=== PATIENT | male | born 1990 | race Two or more races ===

== ENCOUNTER 2016-11-14 00:38 | Emergency (ER) | payer SELFPAY ==
--- NOTE | 2016-11-14 00:46 | EDPHY ---
H & P Source: Patient, Police - Medical/Surgical History Other PMH: HEP C - REPEAT TEST WAS NEGATIVE PER PT - Social History Smoking Status: Never smoked HPI/ROS: HPI CHIEF COMPLAINT: M1 hold, suicidal ideation, access to gun HISTORY OF PRESENT ILLNESS: This patient 26-year-old male, history of depression, with his best friend recently dying. His depression has been getting worse. He is brought here by [place] on M1 hold. Apparently he was texting multiple friends that he was going to kill himself. He does have access to his own gun. He also was telling his brother he was suicidal. His brother took away the gun. Multiple friends arrived at the house. He has been drinking this evening and is intoxicated. Of note he was recently at [facility] for left arm cellulitis. He is currently on Keflex. He has missed his Keflex dose. He will be given here. He is calm and cooperative. Intoxicated. He is not on any depression medications Past Medical History: Depression Past Surgical History: No recent surgery Social History: Endorses marijuana, alcohol, denies illicit drugs or tobacco. 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 Family History: Noncontributory ROS REVIEW OF SYSTEMS: A comprehensive 10 point review of systems is otherwise negative aside from elements mentioned in the history of present illness. Exam Constitutional smells of alcohol, triage nursing summary reviewed, vital signs reviewed, awake/alert. Eyes normal conjunctivae and sclera, EOMI, PERRLA. HENT normal inspection, atraumatic, moist mucus membranes, no epistaxis, neck supple/ no meningismus, no raccoon eyes. Respiratory clear to auscultation bilaterally, normal breath sounds, no respiratory distress, no wheezing. Cardiovascular rate normal, regular rhythm, no murmur, no edema, distal pulses normal. Gastrointestinal soft, non-tender, no rebound, no guarding, normal bowel sounds, no distension, no pulsatile mass. Genitourinary no CVA tenderness. Musculoskeletal no midline vertebral tenderness, full range of motion, no calf swelling, no tenderness of extremities, no meningismus, good pulses, neurovascularly intact. Skin left arm is erythematous consistent with cellulitis, however not significant on exam, on Keflex pink, warm, & dry, no rash, skin atraumatic. Neurologic awake, alert and oriented x 3, AAOx3, moves all 4 extremities equally, motor intact, sensory intact, CN II-XII intact, normal cerebellar, normal vision, normal speech. Psychiatric normal mood/affect. Heme/Lymph/Immune no lymphadenopathy. Differential Diagnosis: Includes but is not limited to in a particular order suicidal ideation, depression, alcohol intoxication, suicidal ideation with specific plan. Access to guns. Medical Decision Making: Plan for this patient will remain on M1 hold. He will need blood draw for medical clearance check alcohol level. Give Keflex for his arm cellulitis most likely this patient need to be admitted to inpatient psychiatric care given suicidal ideation access to guns. Recent close . Re-evaluation: [id number]: No acute events overnight. Patient on M1 hold. Patient signed over to Dr. Edgardo De Leon at 7:00 a.m. shift change. Patient is pending mental health evaluation. Suicidal with access to guns. (Pritesh Quiles) Constitutional: Initial Vital Signs Temperature (C) 36.7 C 11/14/16 00:49 Heart Rate 80 11/14/16 00:49 Respiratory Rate 15 11/14/16 00:49 Blood Pressure 107/63 11/14/16 00:49 O2 Sat (%) 96 11/14/16 00:49 O2 Delivery Mode Room Air Allergies/Adverse Reactions: No Known Allergies Allergy (Unverified 01/03/16 20:58) Home Medications: Medication Instructions Recorded Keflex 11/14/16 Medical Decision Making ED Course/Re-evaluation: Care was turned over to me by Dr. Quiles at 7:00 a.m.. Patient is stable. Subsequently the patient become slightly tremulous as his alcohol level decreases. He is now being evaluated by mental health. Patient is given oral Ativan for alcohol withdrawal symptoms 8:50 a.m.. Patient has been evaluated. They feel that he is appropriate for outpatient management does not meet criteria for inpatient management. He is no longer suicidal. He admits to alcoholism. He no longer has access to gun as the his brother has taken it. He is provided resources for addiction recovery and mental health. (Edgardo De Leon) Differential Diagnosis: Alcohol intoxication with depression. Initially access to a handgun however his brother has taken it. Suicide ideation while intoxicated but when sober no longer suicidal (Edgardo De Leon) - Data Points Laboratory Results: Laboratory Results 11/14/16 00:52 11/14/16 00:52 11/14/16 11/14/16 11/14/16 01:23 00:52 00:52 WBC 7.80 10^3/uL 10^3/uL (3.80-9.50) RBC 5.82 10^6/uL 10^6/uL (4.40-6.38) Hgb 19.3 g/dL H g/dL (13.7-17.5) Hct 53.3 % H % (40.0-51.0) MCV 91.6 fL fL (81.5-99.8) MCH 33.2 pg pg (27.9-34.1) MCHC 36.2 g/dL g/dL (32.4-36.7) RDW 11.6 % % (11.5-15.2) Plt Count 162 10^3/uL 10^3/uL (150-400) MPV 10.0 fL fL (8.7-11.7) Neut % (Auto) 49.9 % % (39.3-74.2) Lymph % (Auto) 43.2 % % (15.0-45.0) [place] % (Auto) 5.9 % % (4.5-13.0) Eos % (Auto) 0.1 % L % (0.6-7.6) Baso % (Auto) 0.4 % % (0.3-1.7) Nucleat RBC Rel Count 0.0 % % (0.0-0.2) Absolute Neuts (auto) 3.89 10^3/uL 10^3/uL (1.70-6.50) Absolute Lymphs (auto) 3.37 10^3/uL H 10^3/uL (1.00-3.00) Absolute Monos (auto) 0.46 10^3/uL 10^3/uL (0.30-0.80) Absolute Eos (auto) 0.01 10^3/uL L 10^3/uL (0.03-0.40) Absolute Basos (auto) 0.03 10^3/uL 10^3/uL (0.02-0.10) Absolute Nucleated RBC 0.00 10^3/uL 10^3/uL (0-0.01) Immature Gran % 0.5 % % (0.0-1.1) Immature Gran # 0.04 10^3/uL 10^3/uL (0.00-0.10) Sodium 147 mEq/L H mEq/L (134-144) Potassium 4.3 mEq/L mEq/L (3.5-5.2) Chloride 109 mEq/L mEq/L (97-110) Carbon Dioxide 20 mEq/l L mEq/l (22-31) Anion Gap 18 mEq/L H mEq/L (8-16) BUN 11 mg/dL mg/dL (7-23) Creatinine 1.0 mg/dL mg/dL (0.7-1.3) Estimated GFR > 60 Glucose 107 mg/dL H mg/dL (70-100) Calcium 9.6 mg/dL mg/dL (8.5-10.4) Salicylates < 1.0 mg/dL L mg/dL (2.0-20.0) Urine Opiates Screen NEGATIVE (NEGATIVE) Acetaminophen < 10 mcg/mL L mcg/mL (10-30) Urine Barbiturates NEGATIVE (NEGATIVE) Ur Phencyclidine Scrn NEGATIVE (NEGATIVE) Ur Amphetamine Screen NEGATIVE (NEGATIVE) U Benzodiazepines Scrn NEGATIVE (NEGATIVE) Urine Cocaine Screen NEGATIVE (NEGATIVE) U Marijuana (THC) Screen NON-NEGATIVE H (NEGATIVE) Ethyl Alcohol 228 mg/dL H mg/dL (0-10) Medications Given: Discontinued Medications Lorazepam (Ativan) 1 mg PO EDNOW ONE Stop: 11/14/16 08:31 Last Admin: 11/14/16 08:36 Dose: 1 mg Departure - Departure Disposition: Home, Routine, Self-Care Clinical Impression: Suicidal ideation Alcohol intoxication Qualifiers: Complication of substance-induced condition: with unspecified complication Qualified Code(s): F10.929 - Alcohol use, unspecified with intoxication, unspecified Condition: Fair Instructions: Alcohol Intoxication (ED) Additional Instructions: Please drink alcohol responsibly. Follow up with resources provided by mental health. Consider alcohol recovery Center. Return for further thoughts of harming yourself or others Referrals: NONE *PRIMARY CARE P,. [Primary Care Provider] - As per Instructions [facility] [Outside] - As per Instructions AA Hotline [Outside] - As per Instructions
[2016-11-14 01:01] LABS: % IMMATURE GRANULYOCYTES 0.5 % (0.0-1.1); ABSOLUTE IMMATURE GRANULOCYTES 0.04 10^3/uL (0.00-0.10); ADD DIFF? NO; ADD MORPH? NO; ADD SCAN? NO; ATYPICAL LYMPHOCYTE FLAG 20 (0-99); FRAGMENT RBC FLAG 0 (0-99); HEMATOCRIT 53.3 % (40.0-51.0); HEMOGLOBIN 19.3 g/dL (13.7-17.5); LEFT SHIFT FLG 0 (0-99); LIPEMIA HEMOLYSIS FLAG 90 (0-99); MEAN CELL HEMOGLOBIN 33.2 pg (27.9-34.1); MEAN CELL HEMOGLOBIN CONCENTR. 36.2 g/dL (32.4-36.7); MEAN CELL VOLUME 91.6 fL (81.5-99.8); PLATELET CLUMPS FLAG 0 (0-99); PLATELET COUNT 162 10^3/uL (150-400); RED BLOOD CELL COUNT 5.82 10^6/uL (4.40-6.38); RED CELL DISTRIBUTION WIDTH 11.6 % (11.5-15.2)
[2016-11-14 01:15] LABS: ANION GAP 18 mEq/L (8-16); CALCIUM 9.6 mg/dL (8.5-10.4); CARBON DIOXIDE 20 mEq/l (22-31); CHLORIDE 109 mEq/L (97-110); ETHANOL SERUM 228 mg/dL (0-10); GLOMERULAR FILTRATION RATE > 60; GLUCOSE 107 mg/dL (70-100); POTASSIUM 4.3 mEq/L (3.5-5.2); SALICYLATE < 1.0 mg/dL (2.0-20.0); SODIUM 147 mEq/L (134-144)
[2016-11-14 06:30] VITALS: RESP 18
[2016-11-14 07:43] VITALS: BP 130/86; PULSE 79; TEMP 97.7; O2SAT 97
[2016-11-14] MEDS ORDERED: LORazepam 1 MG TAB PO ONE (08:30)
== END 2016-11-14 09:50 | disposition home or self-care (01) ==
DX: R45.851 Suicidal ideations (principal); F10.929 Alcohol use, unspecified with intoxication, unspecified
CPT/HCPCS: 80305; G0480

== ENCOUNTER 2018-06-06 19:16 | Emergency (ER) | payer OTHER ==
[2018-06-06] MEDS ORDERED: NS 1,000 ML IV ONE (19:35)
--- NOTE | 2018-06-06 19:38 | EDPHY ---
HPI/HX/ROS/PE/MDM Narrative: CHIEF COMPLAINT: Difficulty breathing HPI: The patient is a 27-year-old male with no history of allergic reaction. Earlier today he was driving to a barbecue with his partner in the car when he describes sudden onset of a panic attack where he just started crying for no reason. This eventually resolved. He then went to a barbecue and 8 and drink some food and then was playing soccer in the backyard. When he stopped playing soccer, he suddenly felt like he was unable to breathe or talk. He complains of difficulty breathing as well as difficulty swallowing and some tightness to his bilateral lateral neck. He denies any pain inside his mouth or throat. He denies syncope. He has no history of similar presentations. Patient denies abdominal pain, rash or pruritus. REVIEW OF SYSTEMS: Aside from elements discussed in the HPI, a comprehensive 10-point review of systems was reviewed and is negative. PMH: History of some psychiatric illness. No history of anaphylaxis. SOCIAL HISTORY: Denies drug abuse. Some current alcohol abuse. PHYSICAL EXAM: General:Patient appears very anxious. ENT: No drooling but a somewhat hoarse voice. The patient has no stridor. Posterior or pharyngeal exam reveals possibly some mild diffuse swelling was posterior oropharynx, but no mitra angioedema. Neck: Normal inspection. Full range of motion. No masses or tenderness. Respiratory: Breath sounds normal bilaterally. Cardiovascular: Regular rate and rhythm. Strong peripheral pulses. Normal cap refill. Abdomen:The abdomen is nontender to palpation. There are no peritoneal signs. There are normal bowel sounds. Back: Normal to inspection. No tenderness to palpation. Skin: Normal color. No rash. Warm and dry. No hives or erythema. Multiple tattoos noted. Extremities: Normal appearance. Full range of motion. Neuro: Oriented x3. Normal motor function. Normal sensory function. ED Course: As the patient had no systemic signs of anaphylaxis and his pulse oxygenation was good, I elected to defer epinephrine for the time being. The patient was treated with IV fluids and 50 mg of IV Benadryl. On re-evaluation at 7:50 p.m. , the patient states he feels significantly better. He is talking with a clear voice and appears very relaxed. His pulse oxygenation remains normal and his lung sounds were normal as well. On re-evaluation at 8:45 p.m., the patient is resting comfortably in bed. He reports no breathing difficulties at this time. On re-evaluation at 9:30 p.m., the patient is awake, comfortable and asymptomatic. He states that he feels back to normal. He is speaking in a clear voice, breathing comfortably and able to tolerate drinking water without any difficulty. The etiology of the patient's presentation is unclear, but given lack of any systemic signs of anaphylaxis, and given history of preceding panic attack, I wonder if this possibly might represent vocal cord dysfunction. I do not think epinephrine or steroids are indicated. The patient refuses further observation and would like to go home. - Data Points Medications Given: Discontinued Medications Diphenhydramine HCl (Benadryl Injection) 50 mg IVP EDNOW ONE Stop: 06/06/18 19:36 Last Admin: 06/06/18 19:40 Dose: 50 mg Sodium Chloride (Ns) 1,000 mls @ 0 mls/hr IV ONCE ONE; Wide Open PRN Reason: Protocol Stop: 06/06/18 19:36 Last Admin: 06/06/18 19:42 Dose: 1,000 mls General Time Seen by Provider: 06/06/18 19:28 Initial Vital Signs: Initial Vital Signs Temperature (C) 37 C 06/06/18 19:44 Heart Rate 91 06/06/18 19:44 Respiratory Rate 18 06/06/18 19:44 Blood Pressure 150/97 H 06/06/18 19:44 O2 Sat (%) 96 06/06/18 19:44 O2 Delivery Mode Room Air Allergies/Adverse Reactions: No Known Allergies Allergy (Unverified 01/03/16 20:58) Home Medications: Medication Instructions Recorded Keflex 11/14/16 Departure - Departure Disposition: Home, Routine, Self-Care Clinical Impression: Airway problem Condition: Good Instructions: Additional Information Additional Instructions: Follow-up with your primary doctor within 72 hours. Return to the Emergency Department for fever, chest pain, shortness of breath, increasing pain or other worsening of condition. Referrals: NONE *PRIMARY CARE P,. [Primary Care Provider] - As per Instructions
[2018-06-06 22:09] VITALS: BP 134/84
== END 2018-06-06 21:41 | disposition home or self-care (01) ==
LOC: CED 19:16
DX: R06.9 Unspecified abnormalities of breathing (principal); E86.9 Volume depletion, unspecified
CPT/HCPCS: 96361-ER; 96374-ER; 99284-ER; J1200